=== PATIENT | female | born 1975 | race Caucasian/White ===

== ENCOUNTER → 2016-10-17 | Outpatient (CLI) | payer BC ==
[~2016-10-17] MED LIST: CLARITIN 1010 MG/TAB PO; RT ADVAIR 128 DISKUS; SINGULAIR 110 MG/TAB PO; SYNTHROID 0.0.025 MG PO; ZYRTEC10 M1 PO
== END ==
LOC: COL.RAD 11:15
DX: D25.9 Leiomyoma of uterus, unspecified (principal); Z87.59 Personal history of other complications of pregnancy, childbirth and the puerperium